=== PATIENT | female | born 2000 | race American Indian/Alaskan Native ===

== ENCOUNTER 2020-03-20 16:34 | Emergency (ER) | payer SELFPAY ==
[2020-03-20 16:57] VITALS: BP 135/88
--- NOTE | 2020-03-20 17:18 | Emergency Department Report ---
ED Abdominal Pain HPI - General Chief Complaint: Abdominal Pain Stated Complaint: ABDOMINAL PAIN/NAUSEA/PREG Time Seen by Provider: 03/20/20 16:57 Source: patient Mode of arrival: Ambulatory Limitations: No Limitations - History of Present Illness Initial Comments: 19 yr old female with no sig pmhx presents to ED c/o abdominal pain. Patient states that she has been having upper abdominal, more so epigastric pain x 2-3 weeks. She states she took a home test 2-3 weeks ago and it was positive. Her last MC was 01/21/2020. She states her abd pain has been intermittent, sharp in nature, seems to be worse with food and she reports associated nausea but no vomiting. She reports 2 episoded of watery stool in past 2 weeks. She reports that she noticed mild brown vag d/c yesterday but this has since resolved. She denies any vag bleeding. She reports urinary frequency but otherwise no dysuria or hematuria. She states this is her first . She denies hx of abdominal surgeries. MD Complaint: abdominal pain, other (+home test) -: week(s) (2-3 weeks ago) - Related Data Previous Rx's Medication Instructions Recorded Last Taken Type Ondansetron [Zofran Odt] 4 mg PO Q8HR PRN #15 tab.rapdis 03/20/20 Unknown Rx cephALEXin [Keflex] 500 mg PO Q8HR #21 cap 03/20/20 Unknown Rx raNITIdine HCl [Zantac] 150 mg PO BID #30 tablet 03/20/20 Unknown Rx Allergies Allergy/AdvReac Type Severity Reaction Status Date / Time No Known Allergies Allergy Unverified 03/20/20 16:49 ED Review of Systems ROS: Stated complaint: ABDOMINAL PAIN/NAUSEA/PREG Other details as noted in HPI Comment: All other systems reviewed and negative Constitutional: denies: chills, fever ENT: denies: ear pain, throat pain Respiratory: denies: cough, shortness of breath, wheezing Cardiovascular: denies: chest pain, palpitations Gastrointestinal: abdominal pain, nausea, diarrhea Genitourinary: frequency. denies: urgency, dysuria, hematuria, discharge, abnormal menses, dyspareunia Skin: denies: rash, lesions Neurological: denies: headache, weakness, paresthesias Psychiatric: denies: anxiety, depression Hematological/Lymphatic: denies: easy bleeding, easy bruising ED Past Medical Hx - Past Medical History Previous Medical History?: No - Surgical History Additional Surgical History: TUBES IN EARS/ TONSIL /HIP - Social History Smoking Status: Never Smoker Substance Use Type: None - Medications Home Medications: Home Medications Medication Instructions Recorded Confirmed Last Taken Type Ondansetron [Zofran Odt] 4 mg PO Q8HR PRN #15 tab.rapdis 03/20/20 Unknown Rx cephALEXin [Keflex] 500 mg PO Q8HR #21 cap 03/20/20 Unknown Rx raNITIdine HCl [Zantac] 150 mg PO BID #30 tablet 03/20/20 Unknown Rx ED Physical Exam - General Limitations: No Limitations General appearance: alert, in no apparent distress - Head Head exam: Present: atraumatic, normocephalic, normal inspection - Eye Eye exam: Present: normal appearance, PERRL, EOMI Pupils: Present: normal accommodation - Neck Neck exam: Present: normal inspection - Respiratory Respiratory exam: Present: normal lung sounds bilaterally. Absent: respiratory distress - Cardiovascular Cardiovascular Exam: Present: regular rate, normal rhythm, normal heart sounds - GI/Abdominal GI/Abdominal exam: Present: soft, tenderness (mild ttp epigastric area. No rebound or guarding. ). Absent: distended - Extremities Exam Extremities exam: Present: normal inspection - Neurological Exam Neurological exam: Present: alert, oriented X3, CN II-XII intact, normal gait - Skin Skin exam: Present: intact ED Course Vital Signs 03/20/20 16:55 Temperature 97.0 F L Pulse Rate 91 H Respiratory 20 Rate Blood Pressure 135/88 O2 Sat by Pulse 99 Oximetry ED Medical Decision Making - Lab Data Result diagrams: 03/20/20 17:15 03/20/20 17:15 - Radiology Data Radiology results: report reviewed Findings [facility] [address] [place] [address] Ultrasound Report Signed Patient: KATERINA VELÁZQUEZ UNIQUE MR#: [id number] : 2000 Acct:[id number] Age/Sex: 19 / F ADM Date: 03/20/20 Loc: ED Attending Dr: Ordering Physician: MISA MENENDEZ Date of Service: 03/20/20 Procedure(s): US OB transvaginal Accession Number(s): [id number] cc: MISA MENENDEZ TRANSVAGINAL OB PELVIC ULTRASOUND INDICATION / CLINICAL INFORMATION: Abdominal/pelvic pain. COMPARISON: None available. FINDINGS: There is a single intrauterine with an estimated sonographic gestational age of 6 weeks 3 days by crown-rump length and an EDC of 11/10/20. Clinical dates are 7 weeks. There is a pole with cardiac activity and a heart rate of 120 bpm. A yolk sac is present. There is no evidence of implantation hemorrhage. The right ovary measures 2.7 x 1.5 x 4.1 cm and the left ovary 3.4 x 1.2 x 2.6 cm. There is normal blood flow to both ovaries on Doppler exam. I see no evidence of adnexal mass or free fluid. IMPRESSION: Single viable 6 week 3 day intrauterine without complication. Signer Name: Wilson Bui MD Signed: 03/20/2020 6:48 PM Workstation Name: [id number] Transcribed By: RT Dictated By: Wilson Bui MD Electronically Authenticated By: Wilson Bui MD Signed Date/Time: 03/20/201847 DD/ 44 TD/TT: Findings [facility] [address] [place] [address] Ultrasound Report Signed Patient: KATERINA VELÁZQUEZ MR#: [id number] : 2000 Acct:[id number] Age/Sex: 19 / F ADM Date: 03/20/20 Loc: ED Attending Dr: Ordering Physician: MISA MENENDEZ Date of Service: 03/20/20 Procedure(s): US abdomen limited Accession Number(s): [id number] cc: MISA MENENDEZ ULTRASOUND ABDOMEN, LIMITED (RIGHT UPPER QUADRANT) INDICATION: Epigastric pain. Nausea and vomiting. COMPARISON: None available. FINDINGS: PANCREAS: No significant abnormality. LIVER: No significant abnormality. GALLBLADDER: No significant abnormality. BILE DUCTS: No significant abnormality. Common bile duct measures 2.1 mm. FREE FLUID: None. ADDITIONAL FINDINGS: Images of the right kidney are normal. IMPRESSION: No significant sonographic abnormality of the right upper quadrant. Signer Name: Wilson Bui MD Signed: 03/20/2020 6:43 PM Workstation Name: [id number] Transcribed By: RT Dictated By: Wilson Bui MD Electronically Authenticated By: Wilson Bui MD Signed Date/Time: 03/20/201842 DD/ 40 TD/TT: - Medical Decision Making 19 yr old female with no sig pmhx presents to ED c/o abdominal pain. Patient states that she has been having upper abdominal, more so epigastric pain x 2-3 weeks. She states she took a home test 2-3 weeks ago and it was positive. Her last MC was 01/21/2020. She states her abd pain has been intermittent, sharp in nature, seems to be worse with food and she reports associated nausea but no vomiting. She reports 2 episoded of watery stool in past 2 weeks. She reports that she noticed mild brown vag d/c yesterday but this has since resolved. She denies any vag bleeding. She reports urinary frequency but otherwise no dysuria or hematuria. She states this is her first . She denies hx of abdominal surgeries. 2032: labs/US reviewed, UA concerning for UTI, culture pending, OB US 6 weeks 3 day live IUP, GB US unremarkable, CBC/CMP unremarkable. Patient currently resting comfortably. She is not toxic or ill appearing and is well hydrated. VS stable. She is not in any pain nor respiratory distress. She has non surgical abd exam. No further w/u indicate at this time. Discussed lab/US/UA results with patient. Discussed suspected dx and tx plan with patient. She expressed understanding of instructions and agree with plan. She is stable a time of d/c. Critical care attestation.: If time is entered above; I have spent that time in minutes in the direct care of this critically ill patient, excluding procedure time. ED Disposition Clinical Impression: Epigastric abdominal pain during , 6 weeks gestation of , UTI (urinary tract infection) Disposition: - TO HOME OR SELFCARE Is pt being admited?: No Does the pt Need Aspirin: No Condition: Stable Instructions: Gastritis, Adult, [id number], Urinary Tract Infection, Adult, Abdominal Pain (ED) Additional Instructions: Take the zofran, pepcid and antibiotics as prescribed. Follow up with your OBGYN next week. Return to ED if symptoms changes or worse.s Prescriptions: cephALEXin [Keflex] 500 mg PO Q8HR #21 cap raNITIdine HCl [Zantac] 150 mg PO BID #30 tablet Ondansetron [Zofran Odt] 4 mg PO Q8HR PRN #15 tab.rapdis PRN Reason: Nausea Referrals: PRIMARY CARE,MD [Primary Care Provider] - 3-5 Days Forms: Work/School Release Form(ED) Time of Disposition: 20:21
[2020-03-20] MEDS ORDERED: FAMOTIDINE 20 MG TAB PO ONE (17:40)
[2020-03-20] MEDS ORDERED: ONDANSETRON 4 MG ODT TAB PO ONE (17:40)
[2020-03-20 17:59] LABS: Basophils % (Auto) 0.4 % (0.0-1.8); Eosinophils # (Auto) 0.1 K/mm3 (0.0-0.4); Eosinophils % (Auto) 1.4 % (0.0-4.3); Hematocrit 35.7 % (30.3-42.9); Lymphocytes # (Auto) 2.4 K/mm3 (1.2-5.4); Lymphocytes % (Auto) 25.4 % (13.4-35.0); Mean Corpuscular HGB Conc 34 % (30-34); Mean Corpuscular Volume 85 fl (79-97); Monocytes % (Auto) 10.4 % (0.0-7.3); Platelet Count 211 K/mm3 (140-440); Red Blood Count 4.21 M/mm3 (3.65-5.03); Red Cell Distribution Width 14.5 % (13.2-15.2)
[2020-03-20 18:17] LABS: Alanine Aminotransferase 7 units/L (7-56); Albumin 4.1 g/dL (3.9-5); Blood Urea Nitrogen 9 mg/dL (7-17); Calcium 10.4 mg/dL (8.4-10.2); Hemolysis Index 8
[2020-03-20 18:18] LABS: BUN/Creatinine Ratio 18
--- NOTE | 2020-03-20 18:47 | Ultrasound Report ---
ULTRASOUND ABDOMEN, LIMITED (RIGHT UPPER QUADRANT) INDICATION: Epigastric pain. Nausea and vomiting. COMPARISON: None available. FINDINGS: PANCREAS: No significant abnormality. LIVER: No significant abnormality. GALLBLADDER: No significant abnormality. BILE DUCTS: No significant abnormality. Common bile duct measures 2.1 mm. FREE FLUID: None. ADDITIONAL FINDINGS: Images of the right kidney are normal. IMPRESSION: No significant sonographic abnormality of the right upper quadrant. Signer Name: Wilson Bui MD Signed: 03/20/2020 6:43 PM Workstation Name: [id number]
--- NOTE | 2020-03-20 18:52 | Ultrasound Report ---
TRANSVAGINAL OB PELVIC ULTRASOUND INDICATION / CLINICAL INFORMATION: Abdominal/pelvic pain. COMPARISON: None available. FINDINGS: There is a single intrauterine with an estimated sonographic gestational age of 6 weeks 3 d ays by crown-rump length and an EDC of 11/10/20. Clinical dates are 7 weeks. There is a pole wi th cardiac activity and a heart rate of 120 bpm. A yolk sac is present. There is no evidence of impla ntation hemorrhage. The right ovary measures 2.7 x 1.5 x 4.1 cm and the left ovary 3.4 x 1.2 x 2.6 cm. There is normal bl ood flow to both ovaries on Doppler exam. I see no evidence of adnexal mass or free fluid. IMPRESSION: Single viable 6 week 3 day intrauterine without complication. Signer Name: Wilson Bui MD Signed: 03/20/2020 6:48 PM Workstation Name: [id number]
[2020-03-20 20:12] LABS: Bacteria,Urine 4+ /HPF (Negative); Bilirubin,Urine NEG (Negative); Blood,Urine LG (Negative); Color,Urine Yellow (Yellow); Mucus,Urine 1+ /HPF; Protein,Urine <15 mg/dL mg/dL (Negative)
== END 2020-03-20 20:33 | disposition home or self-care (01) ==
LOC: ED 16:34
DX: O23.41 Unspecified infection of urinary tract in pregnancy, first trimester (principal); Z3A.01 Less than 8 weeks gestation of pregnancy; Z79.899 Other long term (current) drug therapy
CPT/HCPCS: 36415; 76705; 76817; 80053; 81001; 83690; 84702; 85025; 87086; Q0162

== ENCOUNTER 2020-09-30 07:33 | Emergency (ER) | payer OTHER ==
[2020-09-30 07:43] VITALS: BP 139/79
--- NOTE | 2020-09-30 08:07 | Emergency Department Report ---
- General Chief Complaint: Sore Throat Stated Complaint: CHEST PAIN, SORE THROAT Time Seen by Provider: 09/30/20 07:54 Source: patient Mode of arrival: Ambulatory Limitations: No Limitations - History of Present Illness Initial Comments: 19-year-old female who is currently about 13 weeks and with no significant past history presents to the ER today with complaints of sore throat. Patient states that symptoms started 2 days ago. Patient states that she feels like her throat is swollen, and she is having pain when she swallows. She states that it is painful when she tries to open her mouth but she is able to open it. She denies any drooling. She states that she has had her tonsils removed several years ago but when she looked in her throat recently she noticed that her uvula was swollen. She reports intermittent episodes of alternating dry cough and productive cough and she reports associated mild sharp intermittent pain under her left breast mainly when she coughs. She denies any pain currently. She reports no rhinorrhea or nasal congestion. She denies any fever or chills. She denies any shortness of breath or wheezing. She denies any recent ill contacts or recent travel. She is Ab1. She denies any complaints related to at this time. MD Complaint: cough, sore throat -: Gradual, days(s) (2) - Related Data Previous Rx's Medication Instructions Recorded Last Taken Type Ondansetron [Zofran Odt] 4 mg PO Q8HR PRN #15 tab.rapdis 03/20/20 Unknown Rx cephALEXin [Keflex] 500 mg PO Q8HR #21 cap 03/20/20 Unknown Rx raNITIdine HCl [Zantac] 150 mg PO BID #30 tablet 03/20/20 Unknown Rx Acetaminophen/Codeine [Tylenol 1 tab PO Q6H PRN #10 tab 09/30/20 Unknown Rx /Codeine # 3 tab] Amoxicillin [Trimox CAP] 500 mg PO Q12H #20 capsule 09/30/20 Unknown Rx Allergies Allergy/AdvReac Type Severity Reaction Status Date / Time No Known Allergies Allergy Verified 09/30/20 07:44 ED Review of Systems ROS: Stated complaint: CHEST PAIN, SORE THROAT Other details as noted in HPI Comment: All other systems reviewed and negative Constitutional: denies: chills, fever Eyes: denies: eye pain, eye discharge, vision change ENT: throat pain. denies: ear pain, dental pain, hearing loss, epistaxis, congestion Respiratory: cough. denies: orthopnea, shortness of breath, SOB with exertion, SOB at rest, stridor, wheezing Cardiovascular: chest pain (Mild intermittent sharp pain on the left breast mainly when coughing). denies: palpitations, dyspnea on exertion, orthopnea, edema, syncope, paroxysmal nocturnal dyspnea Endocrine: no symptoms reported Gastrointestinal: denies: abdominal pain, nausea, vomiting, diarrhea, constipation, hematemesis, hematochezia Genitourinary: denies: urgency, dysuria, frequency, hematuria, discharge, abnormal menses, dyspareunia Musculoskeletal: denies: back pain, joint swelling, arthralgia Skin: denies: rash, lesions, change in color, change in hair/nails, pruritus Neurological: denies: headache, weakness, paresthesias Psychiatric: denies: anxiety, depression, auditory hallucinations, visual hallucinations, homicidal thoughts, suicidal thoughts Hematological/Lymphatic: denies: easy bleeding, easy bruising ED Past Medical Hx - Past Medical History Previous Medical History?: Yes Hx Asthma: Yes Additional medical history: kidney reflux - Surgical History Additional Surgical History: TUBES IN EARS/ TONSIL /HIP - Social History Smoking Status: Never Smoker Substance Use Type: None - Medications Home Medications: Home Medications Medication Instructions Recorded Confirmed Last Taken Type Ondansetron [Zofran Odt] 4 mg PO Q8HR PRN #15 tab.rapdis 03/20/20 Unknown Rx cephALEXin [Keflex] 500 mg PO Q8HR #21 cap 03/20/20 Unknown Rx raNITIdine HCl [Zantac] 150 mg PO BID #30 tablet 03/20/20 Unknown Rx Acetaminophen/Codeine [Tylenol 1 tab PO Q6H PRN #10 tab 09/30/20 Unknown Rx /Codeine # 3 tab] Amoxicillin [Trimox CAP] 500 mg PO Q12H #20 capsule 09/30/20 Unknown Rx ED Physical Exam - General Limitations: No Limitations General appearance: alert, in no apparent distress - Head Head exam: Present: atraumatic, normocephalic, normal inspection - Eye Eye exam: Present: normal appearance, PERRL, EOMI Pupils: Present: normal accommodation - ENT ENT exam: Present: mucous membranes moist, TM's normal bilaterally - Expanded ENT Exam Expanded Mouth exam: Absent: drooling, trismus, muffled voice, tongue normal, tongue elevation, laceration Teeth exam: Present: normal inspection Throat exam: Positive: other (Status post tonsillectomy but patient uvular is mildly swollen and beefy red but no exudates ). Negative: tonsillar erythema, tonsillomegaly, tonsillar exudate, R peritonsillar mass, L peritonsillar mass - Neck Neck exam: Present: normal inspection, full ROM, lymphadenopathy (Anterior cervical). Absent: meningismus - Respiratory Respiratory exam: Present: normal lung sounds bilaterally. Absent: respiratory distress, wheezes, rales, rhonchi, chest wall tenderness - Cardiovascular Cardiovascular Exam: Present: regular rate, normal rhythm, normal heart sounds - GI/Abdominal GI/Abdominal exam: Present: soft. Absent: distended, guarding - Neurological Exam Neurological exam: Present: alert, oriented X3, CN II-XII intact, normal gait - Psychiatric Psychiatric exam: Present: normal affect, normal mood - Skin Skin exam: Present: intact ED Course Vital Signs 09/30/20 07:42 Temperature 98.6 F Pulse Rate 111 H Respiratory 16 Rate Blood Pressure 139/79 [Left] O2 Sat by Pulse 99 Oximetry ED Medical Decision Making - Medical Decision Making The patient is resting comfortably and is well-appearing and in no acute distress. There is no respiratory distress, no stridor and the mental status is normal. The neurological exam is normal, and there is no significant signs of dehydration. The history, exam, diagnostic testing and the patient current condition does not suggest an infectious process such as meningitis, retropharyngeal abscess, epiglottitis, peritonsillar abscess, Sumanth's angina, mastoiditis, orbital cellulitis, periorbital cellulitis, severe meningitis, severe pneumonia, ARDS, other acute cardiopulmonary etiology, sepsis or any significant pathology warranting further testing, continued ED treatment, admission, consultation or any other evaluation at this time. Her vital signs have been stable. She has no symptoms related to her at this time. Discussed suspected diagnosis of uvulitis/pharyngitis as well as chest wall pain secondary to cough with patient. Discussed treatment plan with patient. Patient expressed understanding of instructions and agree with plan. Patient stable at time of discharge. Critical care attestation.: If time is entered above; I have spent that time in minutes in the direct care of this critically ill patient, excluding procedure time. ED Disposition Clinical Impression: Uvulitis, Pharyngitis, Chest wall muscle strain, URI with cough and congestion Disposition: TO HOME OR SELFCARE Is pt being admited?: No Does the pt Need Aspirin: No Condition: Stable Instructions: Chest Wall Pain, [id number], Pharyngitis, [id number], Uvulitis Additional Instructions: I recommend that you take the amoxicillin as prescribed. You can do over the counter throat lozenges or suck on ice, popsicles or anything cold to help with throat pain. Take the tylenol 3 only as needed for severe pain. You can take plain robitussin from over the counter to help with cough if needed. Follow up with you PCP and or OBGYN in next 2-3 days. Return to ED if worse. Prescriptions: Amoxicillin [Trimox CAP] 500 mg PO Q12H #20 capsule Acetaminophen/Codeine [Tylenol /Codeine # 3 tab] 1 tab PO Q6H PRN #10 tab PRN Reason: Pain , Severe (7-10) Referrals: PRIMARY CARE,MD [Primary Care Provider] - 3-5 Days Time of Disposition: 08:07
== END 2020-09-30 08:21 | disposition home or self-care (01) ==
LOC: ED 07:33
DX: S29.011A Strain of muscle and tendon of front wall of thorax, initial encounter (principal); J06.9 Acute upper respiratory infection, unspecified; K12.2 Cellulitis and abscess of mouth; J45.909 Unspecified asthma, uncomplicated; Z98.890 Other specified postprocedural states; Z79.899 Other long term (current) drug therapy; X58.XXXA Exposure to other specified factors, initial encounter; Y93.89 Activity, other specified; Y92.89 Other specified places as the place of occurrence of the external cause; Y99.8 Other external cause status
CPT/HCPCS: 99281

== ENCOUNTER 2020-11-24 13:53 | Outpatient (CLI) | payer SELFPAY ==
[2020-11-24 16:17] VITALS: BP 119/73
[2020-11-24] MEDS ORDERED: LACTATED RINGERS 500 ML IV ONE (18:00)
[2020-11-24 18:11] LABS: Bacteria,Urine 1+ /HPF (Negative); Bilirubin,Urine NEG (Negative); Blood,Urine NEG (Negative); Color,Urine Yellow (Yellow); Mucus,Urine FEW /HPF; Protein,Urine <15 mg/dL mg/dL (Negative); Urobilinogen,Urine < 2.0 mg/dL (<2.0)
== END 2020-11-24 18:40 | disposition home or self-care (01) ==
LOC: APU 13:53 → TRG 13:53
PROVIDERS: ATTEND Obstetrics & Gynecology
DX: R10.9 Unspecified abdominal pain (principal); M54.5 Low back pain
CPT/HCPCS: 81001

== ENCOUNTER 2020-12-23 15:53 | Outpatient (CLI) | payer MEDICAID ==
[2020-12-23 16:50] VITALS: BP 115/74
[2020-12-23] MEDS ORDERED: LACTATED RINGERS 1,000 ML IV ONE (16:53)
[2020-12-23 17:17] LABS: Bilirubin,Urine NEG (Negative); Blood,Urine NEG (Negative); Color,Urine Yellow (Yellow); Mucus,Urine FEW /HPF; Protein,Urine <15 mg/dL mg/dL (Negative); Urobilinogen,Urine < 2.0 mg/dL (<2.0)
== END 2020-12-23 19:01 | disposition home or self-care (01) ==
LOC: TRG 15:53 → APU 15:55 → TRG 19:01
PROVIDERS: ATTEND Obstetrics & Gynecology
DX: O26.852 Spotting complicating pregnancy, second trimester (principal); Z3A.25 25 weeks gestation of pregnancy
CPT/HCPCS: 59025; 81001